=== PATIENT | female | born 1995 | race Caucasian/White ===

== ENCOUNTER 2023-03-21 22:34 | Inpatient (IN) | payer OTHER ==
[2023-03-21] MEDS ORDERED: Ibuprofen 800 MG TAB PO PRN (23:16)
[2023-03-21] MEDS ORDERED: Ondansetron PF 4 MG/2 ML Vial IVP PRN (23:16)
[2023-03-21] MEDS ORDERED: Methylergonovine 0.2 MG/ML VIAL IM PRN (23:16)
[2023-03-21] MEDS ORDERED: Lidocaine 1% (PF) 30 ML VIAL SC PRN (23:16)
[2023-03-21] MEDS ORDERED: Promethazine HCl 25 MG/ML VIAL IM PRN (23:16)
[2023-03-21] MEDS ORDERED: Diphenoxylate HCl/Atropine Tablet PO PRN (23:16)
[2023-03-21] MEDS ORDERED: Misoprostol 200 MCG TAB PR PRN (23:16)
[2023-03-21] MEDS ORDERED: hydrALAZINE 20 MG/ML VIAL SLOW IVP PRN (23:16)
[2023-03-21] MEDS ORDERED: Carboprost 250 MCG/ML AMP IM PRN (23:16)
[2023-03-21] MEDS ORDERED: Tranexamic Acid 1,000 MG/10 ML VIAL IVP PRN (23:16)
[2023-03-21] MEDS ORDERED: NS w/ Oxytocin 30 units 500 ML IV SCH ×2 (23:30)
[2023-03-21] MEDS ORDERED: Lactated Ringer's 1,000 ML IV SCH (23:30)
[2023-03-21 23:58] LABS: Hematocrit 36.3 % (34.9-44.5); Hemoglobin 12.7 g/dL (12.0-15.5); Mean Corpuscular Hemoglobin 29.5 pg (27.0-33.0); Mean Corpuscular Volume 84.2 fl (81.6-98.3); Mean Platelet Volume 10.8 fl (7.4-10.4); Platelet Count 294 10x3/uL (150-450); RBC Distribution Width 12.6 % (11.5-14.5); Red Blood Cell (RBC) Count 4.31 10x6/uL (3.90-5.03); White Blood Cell (WBC) Count 12.2 10x3/uL (3.5-10.5)
[2023-03-22 00:05] VITALS: BMI 27.3
[2023-03-22 00:26] LABS: HBSAg Index 0.16 S/CO (0-0.99); Hep B Surf Ag - L&D Non-Reactive S/CO (NonReactive); Syphilis Antibody Nonreactive (Nonreactive); Syphilis Antibody Index 0.06 S/CO (<1.00 Non-Reactive)
[2023-03-22] MEDS ORDERED: Oxytocin 10 UNITS/ML VIAL ONE (02:57)
[2023-03-22] MEDS ORDERED: NS w/ Oxytocin 30 units 500 ML IV SCH (08:10)
[2023-03-22] MEDS ORDERED: HYDROcodone/Acetaminophen 5/325 mg Tablet PO PRN ×2 (08:10)
[2023-03-22] MEDS ORDERED: Boostrix 0.5 ML (Tdap) VIAL (>/=7 yrs of age) IM ONE (08:10)
[2023-03-22] MEDS ORDERED: Benzocaine-Menthol 82.5 ML CAN TOP PRN (08:10)
[2023-03-22] MEDS ORDERED: Milk Of Magnesia 30 ML UDCUP PO PRN (08:10)
[2023-03-22] MEDS ORDERED: Misoprostol 200 MCG TAB VAG PRN (08:10)
[2023-03-22] MEDS ORDERED: Bisacodyl 10 MG SUPP PR PRN (08:10)
[2023-03-22] MEDS ORDERED: Lanolin Ointment 7 GM TUBE TOP PRN (08:10)
[2023-03-22] MEDS ORDERED: hydrALAZINE 20 MG/ML VIAL SLOW IVP PRN (08:10)
[2023-03-22] MEDS: Ferrous Sulfate 325 MG TAB PO SCH ×2 (10:08→18:36)
[2023-03-22] MEDS: Prenatal Vitamin 1 TAB PO SCH (10:09)
[2023-03-22] MEDS: Docusate 100 MG CAP PO SCH ×2 (14:11→20:51)
[2023-03-22] MEDS: Ibuprofen 800 MG TAB PO SCH ×2 (14:11→20:52)
[2023-03-23] MEDS: Ibuprofen 800 MG TAB PO SCH (04:44)
[2023-03-23] MEDS: Ferrous Sulfate 325 MG TAB PO SCH (07:15)
[2023-03-23] MEDS: Prenatal Vitamin 1 TAB PO SCH (08:07)
[2023-03-23] MEDS: Docusate 100 MG CAP PO SCH (08:07)
[2023-03-23 09:08] VITALS: BP 109/63; TEMP 97.7
== END 2023-03-23 12:00 | disposition home or self-care (01) | DRG 807 ==
LOC: CSHLD/OP 22:34 → CSHLD 23:07 → CSHPP 03-22 07:40
PROVIDERS: ADMIT Obstetrics & Gynecology; ATTEND Obstetrics & Gynecology
PROC: 10E0XZZ Delivery of Products of Conception, External Approach (ICD-10-PCS; principal; 2023-03-22)
DX: O80 Encounter for full-term uncomplicated delivery (principal); Z37.0 Single live birth; Z3A.39 39 weeks gestation of pregnancy
CPT/HCPCS: 36415; 85027; 86780; 86850; 86900; 86901; 87340; 99285